=== PATIENT | female | born 1970 | race Caucasian/White ===

== ENCOUNTER → 2017-08-12 | Outpatient (CLI) | payer BC ==
[~2017-08-12] MED LIST: MOTRIN 600600 MG/TAB PO; PERCOCET 325 MG1 TA2 PO; PRENATAL1 TA1 PO
== END ==
LOC: MC.RAD 12:58
DX: Z12.31 Encounter for screening mammogram for malignant neoplasm of breast (principal)

== ENCOUNTER → 2018-12-10 | Outpatient (CLI) | payer BC | LOC: MC.RAD 11-05 15:45 | DX: Z12.31 Encounter for screening mammogram for malignant neoplasm of breast (principal) ==

== ENCOUNTER → 2020-08-09 | Outpatient (CLI) | payer BC | LOC: MC.RAD 10:15 | DX: Z12.31 Encounter for screening mammogram for malignant neoplasm of breast (principal) ==

== ENCOUNTER → 2021-10-31 | Outpatient (CLI) | payer BC | LOC: MC.RAD 09-18 13:15 | DX: Z12.31 Encounter for screening mammogram for malignant neoplasm of breast (principal) ==